=== PATIENT | male | born 1995 | race Two or more races ===

== ENCOUNTER 2024-03-13 17:35 | Emergency (ER) | payer OTHER ==
[~2024-03-13] VITALS: Ht 177.8 cm; Wt 108.9 kg
[2024-03-13] MEDS ORDERED: ACETAMINOPHEN 500 MG GEL..CAP PO ONE (18:27)
[2024-03-13] MEDS ORDERED: 0.9 % SODIUM CHLORIDE 1,000 ML IV STA (19:55)
[2024-03-13 20:29] LABS: HEMATOCRIT 43.3 % (39.0-48.0); HEMOGLOBIN 14.7 g/dL (13-16.00); MEAN CORPUSCULAR HGB CONC 34.1 g/dl (32.0-36.0); PLATELET COUNT 165 K/uL (150-450); RED BLOOD COUNT 4.75 M/uL (4.00-6.00); RED CELL DISTRIBUTION WIDTH 12.8 % (11.5-14.5)
[2024-03-13 21:20] LABS: ALBUMIN 4.1 gm/dL (3.4-5.0); BILIRUBIN TOTAL 0.53 mg/dL (0.3-1.2); CALCIUM 8.7 mg/dL (8.5-10.1); CREATININE SERUM 1.15 mg/dL (0.70-1.30); GFR 75.18; GLOBULINA 2.9 G/DL (2.4-3.5); POTASSIUM 4.02 mEq/L (3.5-5.1)
== END 2024-03-13 22:02 | disposition home or self-care (01) ==
LOC: ER 17:36
PROVIDERS: General Practice
DX: J10.1 Influenza due to other identified influenza virus with other respiratory manifestations (principal); R50.9 Fever, unspecified; Z20.822 Contact with and (suspected) exposure to COVID-19; Z91.013 Allergy to seafood

== ENCOUNTER 2024-03-18 12:56 | Inpatient (IN) | payer OTHER ==
[~2024-03-18] VITALS: Ht 177.8 cm; Wt 104.3 kg
--- NOTE | 2024-03-18 13:47 | NUR ---
PACIENTE ALERTA Y ORIENTADO X 3. REFIERE DOLOR ABDOMINAL DESDE AL SABADO Y TIENE REFERIDO ( HAV , ELEVATES TRANSAMISASE LEVEL )
[2024-03-18] MEDS ORDERED: 0.9 % SODIUM CHLORIDE 1,000 ML IV STA (14:14)
--- NOTE | 2024-03-18 14:31 | NUR ---
PTE EVALUADA POR EL AYSE LAFLEUR QUIEN ORDENA TRATAMEINTO LA CUAL SE EJECUTA POR MS.G.JIMENZ HO., SE MANTIENE BAJO OBSERVCION.
[2024-03-18 14:46] LABS: HEMATOCRIT 44.2 % (39.0-48.0); MEAN CELL VOLUME 91.2 fL (80.0-100.00); MEAN CORPUSCULAR HEMOGLOBIN 30.9 pg (27.00-32.0); MEAN CORPUSCULAR HGB CONC 33.8 g/dl (32.0-36.0); RED BLOOD COUNT 4.85 M/uL (4.00-6.00); RED CELL DISTRIBUTION WIDTH 13.1 % (11.5-14.5)
[2024-03-18 15:04] LABS: ALBUMIN 3.8 gm/dL (3.4-5.0); BILIRUBIN TOTAL 0.71 mg/dL (0.3-1.2); CALCIUM 8.9 mg/dL (8.5-10.1); CREATININE SERUM 0.73 mg/dL (0.70-1.30); GFR 127.03; POTASSIUM 4.24 mEq/L (3.5-5.1); TOTAL PROTEIN 7.8 gm/dL (6.4-8.2)
[2024-03-18 15:39] LABS: PLATELET COUNT 130 K/uL (150-450)
[2024-03-18 18:04] LABS: PH,URINE 5.5 (5.0-8.0); URINE APPEARANCE Clear; URINE BILIRRUBIN Small (NEGATIVE); URINE BLOOD Negative; URINE COLOR Dark Yellow; URINE GLUCOSE Negative (NEGATIVE); URINE LEUKOCYTE Trace; URINE NITRATE Negative; URINE PROTEIN Trace (NEGATIVE); URINE UROBILINOGEN 0.2 E.U./dl
[2024-03-18 18:08] LABS: URINE BACTERIA 293.5 uL (0.0-1933); URINE CAST 1.98 uL (0.0-1.40); URINE EPITHELIAL CELLS 27.2 uL (0.0-38.8); URINE WBC 45.2 uL (0.0-23.2)
[2024-03-18 18:17] LABS: URINE KETONE 40 (NEGATIVE); URINE RBC 1.3 uL (0.0-20.8)
[2024-03-18 18:18] LABS: URINE MUCUS MODERATE
[2024-03-18 19:34] LABS: AMYLASE 45 U/L (25-115); LIPASE 30 U/L (13-75)
[2024-03-18] MEDS ORDERED: LACTOBACILLUS ACIDOPHILUS 1 CAP CAP PO SCH (20:12)
[2024-03-18] MEDS ORDERED: ONDANSETRON HCL 4 MG in 0.9 % SODIUM CHLORIDE 50 ML IV PRN (20:15)
[2024-03-18] MEDS ORDERED: RINGERS SOLUTION,LACTATED 1,000 ML IV SCH (20:15)
[2024-03-18] MEDS ORDERED: LACTOBACILLUS ACIDOPHILUS 1 CAP CAP PO ONE (20:25)
[2024-03-18 20:52] VITALS: BP 125/82; O2SAT 96
[2024-03-18 21:17] LABS: INR 1.05; PARTIAL THROMBOPLASTIN TIME 34.8 SECONDS (22.0-34.0); PROTHROMBIN TIME 11.4 SECONDS (9.0-11.5)
[2024-03-18] MEDS ORDERED: METHYLPREDNISOLONE SOD SUCC 125 MG VIAL ONE (22:31)
[2024-03-18] MEDS ORDERED: DIPHENHYDRAMINE HCL 50 MG/ML VIAL 1ML ONE (22:31)
[2024-03-18] MEDS ORDERED: DIPHENHYDRAMINE HCL 50 MG/ML VIAL 1ML IV ONE (23:00)
[2024-03-18 23:13] VITALS: BP 131/86; O2SAT 95
[2024-03-19 03:29] VITALS: BP 133/81; O2SAT 97
[2024-03-19] MEDS ORDERED: PANTOPRAZOLE SODIUM 40 MG/VIAL VIAL IV SCH (09:00)
[2024-03-19 09:15] VITALS: BP 145/90; O2SAT 98
[2024-03-19 09:43] LABS: ALBUMIN 3.4 gm/dL (3.4-5.0); BILIRUBIN TOTAL 0.73 mg/dL (0.3-1.2); BILIRUBIN,CONJUGATED 0.22 mg/dL (0.0-0.2); BILIRUBIN,UNCONJUGATED 0.51 mg/dL (0.0-0.6); TOTAL PROTEIN 6.8 gm/dL (6.4-8.2)
[2024-03-19] MEDS ORDERED: LOPERAMIDE HCL 2 MG CAPSULE PO STA (16:07)
[2024-03-19] MEDS ORDERED: ENALAPRILAT DIHYDRATE 1.25 MG/ML VIAL IV PRN (16:15)
[2024-03-19] MEDS ORDERED: LOPERAMIDE HCL 2 MG CAPSULE PO PRN (16:15)
[2024-03-19 16:47] VITALS: BP 148/87
[2024-03-20 01:58] VITALS: BP 139/76
[2024-03-20 07:10] LABS: hav igm Positive (Negative); hcv Non Reactive (Non Reactive); hep b c Positive (Negative); hep b s ag Negative (Negative)
[2024-03-20 08:20] VITALS: BP 138/79
[2024-03-20 09:16] LABS: CHOL HDL RATIO 7.1 (0-5.0)
[2024-03-20 09:19] LABS: ALBUMIN 3.4 gm/dL (3.4-5.0); BILIRUBIN TOTAL 0.64 mg/dL (0.3-1.2); BILIRUBIN,CONJUGATED 0.2 mg/dL (0.0-0.2); BILIRUBIN,UNCONJUGATED 0.44 mg/dL (0.0-0.6)
[2024-03-20 16:00] VITALS: BP 135/86; O2SAT 97
[2024-03-21 01:41] VITALS: BP 116/77
[2024-03-21 09:20] VITALS: BP 168/68
[2024-03-21 16:00] VITALS: BP 142/82; O2SAT 97
[2024-03-22 02:17] VITALS: BP 113/69; O2SAT 97
[2024-03-22 06:16] LABS: HEMATOCRIT 38.2 % (39.0-48.0); HEMOGLOBIN 13.2 g/dL (13-16.00); MEAN CELL VOLUME 89.7 fL (80.0-100.00); MEAN CORPUSCULAR HEMOGLOBIN 30.9 pg (27.00-32.0); MEAN CORPUSCULAR HGB CONC 34.5 g/dl (32.0-36.0); PLATELET COUNT 236 K/uL (150-450); RED BLOOD COUNT 4.26 M/uL (4.00-6.00); RED CELL DISTRIBUTION WIDTH 12.7 % (11.5-14.5)
[2024-03-22 07:06] LABS: ALBUMIN 3.3 gm/dL (3.4-5.0); BILIRUBIN TOTAL 0.44 mg/dL (0.3-1.2); BILIRUBIN,CONJUGATED 0.12 mg/dL (0.0-0.2); BILIRUBIN,UNCONJUGATED 0.32 mg/dL (0.0-0.6); MAGNESIUM 2.1 mg/dL (1.8-2.4); TOTAL PROTEIN 6.8 gm/dL (6.4-8.2)
[2024-03-22 08:26] VITALS: BP 148/81
== END 2024-03-22 15:05 | disposition home or self-care (01) | DRG 443 ==
LOC: ER 12:58 → SEC-K 20:29 → MEDJ 20:29
PROVIDERS: Emergency Medicine; General Practice; Internal Medicine; Internal Medicine Infectious Disease; ADMIT Internal Medicine; ATTEND Internal Medicine
PROC: BW40ZZZ Ultrasonography of Abdomen (ICD-10-PCS; principal; 2024-03-18)
PROC: BW21ZZZ Computerized Tomography (CT Scan) of Abdomen and Pelvis (ICD-10-PCS; 2024-03-18)
DX: B15.9 Hepatitis A without hepatic coma (principal); R63.0 Anorexia; B19.10 Unspecified viral hepatitis B without hepatic coma